=== PATIENT | female | born 1960 | race Caucasian/White ===

== ENCOUNTER 2019-12-16 13:37 | Emergency (ER) | payer BC ==
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
[2019-12-16] MEDS ORDERED: Iopamidol 370 76% 100 ML VIAL ONE (14:37)
[2019-12-16] MEDS ORDERED: Ketorolac Tromethamine 30 MG/ML VIAL ONE (14:41)
[2019-12-16] MEDS ORDERED: Adacel (T-DAP) 0.5 ML SYRINGE ONE (14:41)
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
== END 2019-12-16 15:13 | disposition home or self-care (01) ==
LOC: ERS 13:37
DX: S22.32XA Fracture of one rib, left side, initial encounter for closed fracture (principal); S61.412A Laceration without foreign body of left hand, initial encounter; V49.9XXA Car occupant (driver) (passenger) injured in unspecified traffic accident, initial encounter
CPT/HCPCS: 71260; 74177; 90471; 90715; 96374; J1885; Q9967

== ENCOUNTER 2019-12-20 11:00 | Outpatient (CLI) | payer BC ==
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
== END 2019-12-20 11:01 | disposition home or self-care (01) ==
LOC: BICRAD 11:00
PROVIDERS: ATTEND Family Medicine
DX: M54.2 Cervicalgia (principal); M47.812 Spondylosis without myelopathy or radiculopathy, cervical region; Z00.00 Encounter for general adult medical examination without abnormal findings
CPT/HCPCS: 72040

== ENCOUNTER 2020-02-09 12:23 | Outpatient (CLI) | payer BC ==
--- NOTE | 2020-02-09 15:43 | MRI ---
MRI OF RIGHT SHOULDER PERFORMED WITHOUT CONTRAST ENHANCEMENT: 02/09/20 HISTORY: Right shoulder pain. There is mild arthrosis of the AC joint with a laterally downsloping acromion. There is a full thickn ess partial width essentially nonretracted supraspinatus tendon tear. Tear does extend to involve the undersurface of some of the more posterior fibers. The infraspinatus tendon appears intact. The AP d imension of the full thickness component of the tear is probably 6 to 7 mm. Subscapularis muscle and tendon are intact. The biceps tendon is normal in position within the bicipi luca groove. Bicipital labral complex is unremarkable. The inferior glenohumeral ligament is intact. Slightly trun cated appearance to the anterior inferior labrum probably more of a chronic process. No significant rotator cuff muscle atrophy. IMPRESSION: Full thickness partial width supraspinatus tendon tear. POS: [facility]
== END 2020-02-09 12:24 | disposition home or self-care (01) ==
LOC: BICMRI 12:23
PROVIDERS: ATTEND Orthopaedic Surgery
DX: S46.011A Strain of muscle(s) and tendon(s) of the rotator cuff of right shoulder, initial encounter (principal)

== ENCOUNTER 2020-02-24 12:38 | Outpatient (CLI) | payer BC ==
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
== END 2020-02-24 12:39 | disposition home or self-care (01) ==
LOC: TBSIIMAG 12:38
PROVIDERS: ATTEND Surgery
DX: M54.2 Cervicalgia (principal); R20.2 Paresthesia of skin; M48.02 Spinal stenosis, cervical region; M48.03 Spinal stenosis, cervicothoracic region; M43.8X2 Other specified deforming dorsopathies, cervical region
CPT/HCPCS: 72141

== ENCOUNTER 2020-03-09 06:11 | Day surgery (SDC) | payer BC ==
[2020-03-07 11:08] VITALS: BMI 36.0
[2020-03-09] MEDS ORDERED: Fentanyl 100 MCG/2 ML VIAL ONE ×3 (06:17→09:23)
[2020-03-09] MEDS ORDERED: Midazolam HCl 2 mg/2 ml Vial ONE ×2 (06:17→06:25)
[2020-03-09] MEDS ORDERED: Fentanyl 100 MCG/2 ML VIAL SLOW IVP PRN (07:37)
[2020-03-09] MEDS ORDERED: Ropivacaine 0.2% 550 ML 550 ML NERVE BLCK SCH (07:45)
[2020-03-09] MEDS ORDERED: Zolpidem Tartrate 5 MG TAB PO PRN (07:45)
[2020-03-09] MEDS ORDERED: HYDROcodone/Acetaminophen 5/325 mg Tablet PO PRN ×2 (07:45)
[2020-03-09] MEDS ORDERED: Ondansetron PF 4 MG/2 ML Vial IVP PRN (07:45)
[2020-03-09] MEDS ORDERED: traMADol HCl 50 MG TAB PO PRN ×2 (07:45)
[2020-03-09] MEDS ORDERED: Promethazine HCl 25 MG/ML VIAL IM PRN (07:45)
[2020-03-09] MEDS ORDERED: Ropivacaine 0.2% HCl/PF (40 MG/20 ML VIAL) ONE (09:29)
[2020-03-09] MEDS ORDERED: Lidocaine 1% PF 5 ML VIAL ONE (09:29)
[2020-03-09] MEDS ORDERED: Ondansetron PF 4 MG/2 ML Vial ONE (09:29)
[2020-03-09] MEDS ORDERED: Dexamethasone 20 MG/5 ML VIAL ONE (09:29)
[2020-03-09] MEDS ORDERED: PROPOFOL 200 MG/20 ML VIAL ONE (09:29)
[2020-03-09] MEDS ORDERED: Rocuronium Bromide 10 MG/ML (10ML VIAL) ONE (09:29)
[2020-03-09] MEDS ORDERED: Glycopyrrolate 0.2 MG/ML 5 ML SYRINGE ONE (09:29)
[2020-03-09] MEDS ORDERED: Ropivacaine 0.5% HCl/PF (150 MG/30 ML VIAL) ONE (09:29)
[2020-03-09] MEDS ORDERED: Promethazine HCl 25 MG/ML VIAL ONE (10:16)
--- NOTE | 2020-03-09 10:43 | OP ---
DATE OF PROCEDURE: 03/09/2020 PROCEDURE PERFORMED: Right shoulder arthroscopic rotator cuff repair and decompression. ANESTHESIA: General. ESTIMATED BLOOD LOSS: Minimal. SPECIMEN: None. COMPLICATION: None. DESCRIPTION OF PROCEDURE: The patient was taken to the operating room, where general anesthesia was induced. The patient was placed in a left lateral decubitus position. Right arm was placed in 15 pounds of traction, prepped and draped in usual sterile fashion. Scope was placed in the glenohumeral joint, which was free of disease other than rotator cuff tear. She had an intact biceps tendon and no significant arthritis. There was age-related labral fraying. The scope was placed in the subacromial bursa. Bursectomy was performed. Inferior acromioplasty was performed. Rotator cuff tear was debrided to healthy edges and debrided the greater tuberosity. Rotator cuff was mobilized. Two sutures were placed in the greater tuberosity, sutures passed through the rotator cuff and tied down with a good watertight repair and reinforced with a lateral row using 2 SwiveLock suture devices. Shoulder was then irrigated. Portals were closed with nylon suture. Sterile dressings were applied. Job ID: [id number]
== END 2020-03-09 11:20 | disposition home or self-care (01) ==
LOC: SDC 06:11
PROVIDERS: ATTEND Orthopaedic Surgery
PROC: 0RNJ4ZZ Release Right Shoulder Joint, Percutaneous Endoscopic Approach (ICD-10-PCS; principal; 2020-03-09)
PROC: 0LQ14ZZ Repair Right Shoulder Tendon, Percutaneous Endoscopic Approach (ICD-10-PCS; principal; 2020-03-09)
PROC: 3E0T3BZ Introduction of Anesthetic Agent into Peripheral Nerves and Plexi, Percutaneous Approach (ICD-10-PCS; principal; 2020-03-09)
DX: S46.011A Strain of muscle(s) and tendon(s) of the rotator cuff of right shoulder, initial encounter (principal); M17.11 Unilateral primary osteoarthritis, right knee; G89.18 Other acute postprocedural pain; E78.5 Hyperlipidemia, unspecified; Z79.899 Other long term (current) drug therapy; Z88.2 Allergy status to sulfonamides
CPT/HCPCS: A4306; C1713; J0690; J1100; J2250; J2405; J2550; J2704; J2795; J3010

== ENCOUNTER 2020-10-02 14:15 | Outpatient (CLI) | payer BC | END 2020-10-02 14:16 | disposition home or self-care (01) | LOC: LABBT 14:15 | PROVIDERS: ATTEND Surgery | DX: Z01.810 Encounter for preprocedural cardiovascular examination (principal); M54.12 Radiculopathy, cervical region; M48.02 Spinal stenosis, cervical region | CPT/HCPCS: 80048; 85025; 85610; 85730; 86850; 86900; 86901; 87635; 93005; 93010; U0003; U0005 ==

== ENCOUNTER 2020-10-05 06:10 | Day surgery (SDC) | payer BC ==
[2020-10-02 15:53] LABS: PTT 27.9 sec (22.0-33.0); Prothrombin Time 10.6 sec (9.5-12.1)
[2020-10-02 15:54] LABS: Anion Gap 15 mmol/L (10-20); BUN (Urea Nitrogen) 13 mg/dL (9.8-20.1); Calc. Creatinine Clearance 0 mL/min (70-130); Calcium 9.4 mg/dL (7.8-10.44); Carbon Dioxide 24 mmol/L (22-29); Chloride 105 mmol/L (98-107); Glucose 87 mg/dL (70-105); Potassium 4.6 mmol/L (3.5-5.1); Sodium 139 mmol/L (136-145)
[2020-10-02 16:51] LABS: #Basophils 0.1 10x3/uL (0.0-0.2); #Eosinphils 0.1 10x3/uL (0.0-0.5); #Monocytes 0.4 10x3/uL (0.0-1.1); #Neutrophils 3.1 10x3/uL (1.5-8.4); %Basophils 0.8 % (0.0-2.0); %Lymphocytes 41.3 % (18.0-47.0); %Neutrophils 50.4 % (40.0-75.0); Hemoglobin 13.4 g/dL (12.0-15.5); Mean Corpuscular HGB CONC 32.7 g/dL (32.0-36.0); Mean Corpuscular Hemoglobin 29.1 pg (27.0-33.0); Mean Corpuscular Volume 88.9 fl (81.6-98.3); Mean Platelet Volume 10.4 fl (7.4-10.4); Platelet Count 233 10x3/uL (150-450); RBC Distribution Width 13.2 % (11.5-14.5); Red Blood Cell (RBC) Count 4.61 10x6/uL (3.90-5.03); White Blood Cell (WBC) Count 6.1 10x3/uL (3.5-10.5)
[2020-10-03 04:50] LABS: SARS-CoV-2 PCR by NAA Not Detected (NotDetected)
[2020-10-04 11:43] VITALS: BMI 36.1
[2020-10-05] MEDS ORDERED: Fentanyl 100 MCG/2 ML VIAL ONE ×3 (06:28→10:22)
[2020-10-05] MEDS ORDERED: Thrombin 5000 UNITS/5 ML VIAL ONE (06:34)
[2020-10-05] MEDS ORDERED: Dexmedetomidine 200 MCG/2 ML VIAL ONE (06:49)
[2020-10-05] MEDS ORDERED: Glycopyrrolate 0.2 MG/ML 5 ML SYRINGE ONE (07:38)
[2020-10-05] MEDS ORDERED: Ondansetron PF 4 MG/2 ML Vial ONE (07:38)
[2020-10-05] MEDS ORDERED: Lidocaine 1% PF 5 ML VIAL ONE (07:38)
[2020-10-05] MEDS ORDERED: Rocuronium Bromide 10 MG/ML (10ML VIAL) ONE (07:38)
[2020-10-05] MEDS ORDERED: Dexamethasone 20 MG/5 ML VIAL ONE (07:38)
[2020-10-05] MEDS ORDERED: PROPOFOL 200 MG/20 ML VIAL ONE (07:38)
[2020-10-05] MEDS ORDERED: Acetaminophen 325 MG TAB PO PRN (09:50)
[2020-10-05] MEDS ORDERED: Morphine 2 MG/ML VIAL SLOW IVP PRN (09:50)
[2020-10-05] MEDS ORDERED: traMADol HCl 50 MG TAB PO PRN (09:50)
[2020-10-05] MEDS ORDERED: Acetaminophen/Codeine 30-300mg Tablet PO PRN (09:50)
[2020-10-05] MEDS ORDERED: Ondansetron HCl/PF 4 MG/2 ML Vial IVP PRN (10:24)
[2020-10-05] MEDS ORDERED: Promethazine HCl 25 MG/ML VIAL IM PRN (10:24)
[2020-10-05] MEDS ORDERED: Promethazine HCl 25 MG/ML VIAL SLOW IVP PRN (10:24)
[2020-10-05] MEDS: Morphine 4 MG/ML VIAL SLOW IVP PRN ×2 (11:15→12:43)
[2020-10-05] MEDS: Sodium Chloride 0.9% 1,000 ML IV SCH (11:16)
[2020-10-05] MEDS ORDERED: Artificial Tear Sol 15 ML BOT EA EYE PRN (11:59)
[2020-10-05] MEDS: tiZANidine HCl 4 MG TAB PO PRN (13:51)
[2020-10-05] MEDS: CEFAZOLIN 2 GM in Premix Bag 1 BAG IVPB SCH ×2 (15:06→22:48)
[2020-10-05] MEDS: HYDROcodone/Acetaminophen 7.5/325 mg Tablet PO PRN ×2 (15:11→22:48)
[2020-10-05] MEDS ORDERED: NORETHINDRONE ACET PO SCH (21:00)
[2020-10-05] MEDS ORDERED: ESTRADIOL PO SCH (21:00)
[2020-10-05] MEDS ORDERED: [UNRECOGNIZED DRUG - OTHER] PO SCH (21:00)
[2020-10-06] MEDS: Sodium Chloride 0.9% 1,000 ML IV SCH (00:37)
[2020-10-06] MEDS: HYDROcodone/Acetaminophen 7.5/325 mg Tablet PO PRN (06:06)
[2020-10-06] MEDS: tiZANidine HCl 4 MG TAB PO PRN (06:07)
[2020-10-06] MEDS: CEFAZOLIN 2 GM in Premix Bag 1 BAG IVPB SCH (06:07)
[2020-10-06 08:01] VITALS: BP 144/82; TEMP 98
== END 2020-10-06 10:30 | disposition home or self-care (01) ==
LOC: SDC 06:10 → SURG A 09:50 → SDC 10-06 10:30
PROVIDERS: ATTEND Surgery
PROC: 0RT30ZZ Resection of Cervical Vertebral Disc, Open Approach (ICD-10-PCS; principal; 2020-10-05)
PROC: 0RG20A0 Fusion of 2 or more Cervical Vertebral Joints with Interbody Fusion Device, Anterior Approach, Anterior Column, Open Approach (ICD-10-PCS; principal; 2020-10-05)
DX: M48.02 Spinal stenosis, cervical region (principal); M54.12 Radiculopathy, cervical region; M54.5 Low back pain; Z88.2 Allergy status to sulfonamides; Z20.822 Contact with and (suspected) exposure to COVID-19
CPT/HCPCS: 36415; 76000; 80048; 85025; 85610; 85730; 86850; 86900; 86901; 87635; C1713; C1776; J0690; J1100; J2270; J2405; J2704; J3010; U0003; U0005

== ENCOUNTER 2020-11-12 13:18 | Outpatient (CLI) | payer BC | END 2020-11-12 13:19 | disposition home or self-care (01) | LOC: TBSIIMAG 13:18 | PROVIDERS: ATTEND Surgery | DX: M54.12 Radiculopathy, cervical region (principal); M48.02 Spinal stenosis, cervical region; M43.13 Spondylolisthesis, cervicothoracic region; Z98.1 Arthrodesis status | CPT/HCPCS: 72040 ==

== ENCOUNTER 2020-12-03 14:04 | Outpatient (CLI) | payer BC | END 2020-12-03 14:05 | disposition home or self-care (01) | LOC: BICMRI 14:04 | PROVIDERS: ATTEND Surgery | DX: M47.26 Other spondylosis with radiculopathy, lumbar region (principal); M43.17 Spondylolisthesis, lumbosacral region; M48.061 Spinal stenosis, lumbar region without neurogenic claudication; M47.817 Spondylosis without myelopathy or radiculopathy, lumbosacral region; M48.07 Spinal stenosis, lumbosacral region | CPT/HCPCS: 72110; 72148 ==

== ENCOUNTER 2022-03-24 13:23 | Outpatient (CLI) | payer BC | END 2022-03-24 13:24 | disposition home or self-care (01) | LOC: MRI 13:23 | PROVIDERS: ATTEND Nurse Practitioner Family | DX: M43.17 Spondylolisthesis, lumbosacral region (principal); M47.816 Spondylosis without myelopathy or radiculopathy, lumbar region; M48.07 Spinal stenosis, lumbosacral region | CPT/HCPCS: 72100; 72148 ==

== ENCOUNTER 2022-07-09 13:53 | Outpatient (CLI) | payer BC | END 2022-07-09 13:54 | disposition home or self-care (01) | LOC: BICCT 13:53 | PROVIDERS: ATTEND Nurse Practitioner Family | DX: M43.17 Spondylolisthesis, lumbosacral region (principal); M48.061 Spinal stenosis, lumbar region without neurogenic claudication; M48.07 Spinal stenosis, lumbosacral region; M51.36 Other intervertebral disc degeneration, lumbar region | CPT/HCPCS: 72131 ==

== ENCOUNTER 2023-01-27 12:34 | Outpatient (CLI) | payer BC | END 2023-01-27 12:35 | disposition home or self-care (01) | LOC: RAD 12:34 | PROVIDERS: ATTEND Family Medicine | DX: Z01.818 Encounter for other preprocedural examination (principal) | CPT/HCPCS: 71046 ==

== ENCOUNTER 2023-08-28 12:32 | Outpatient (CLI) | payer BC | END 2023-08-28 12:33 | disposition home or self-care (01) | LOC: CT 12:32 | PROVIDERS: ATTEND Physician Assistant | DX: Z47.89 Encounter for other orthopedic aftercare (principal); Z98.890 Other specified postprocedural states; M48.061 Spinal stenosis, lumbar region without neurogenic claudication; M48.07 Spinal stenosis, lumbosacral region; M47.816 Spondylosis without myelopathy or radiculopathy, lumbar region; M41.9 Scoliosis, unspecified | CPT/HCPCS: 72131 ==

== ENCOUNTER 2024-01-01 15:01 | Outpatient (CLI) | payer BC | END 2024-01-01 15:02 | disposition home or self-care (01) | LOC: BICMRI 15:01 | PROVIDERS: ATTEND Nurse Practitioner Family | DX: M47.22 Other spondylosis with radiculopathy, cervical region (principal); Z98.1 Arthrodesis status; Z98.890 Other specified postprocedural states | CPT/HCPCS: 72141 ==